=== PATIENT | male | born 1995 | race Caucasian/White ===

== ENCOUNTER 2016-08-17 04:06 | Emergency (ER) | payer BC ==
[~2016-08-17] VITALS: Ht 193 cm; Wt 69.7 kg
[~2016-08-17 04:06] MED LIST: FLUO20TA25 PO; TRAM50TA2 PO
[2016-08-17 05:11] VITALS: BP 127/84
== END 2016-08-17 05:13 | disposition home or self-care (01) ==
LOC: ED 05:07
DX: F41.9 Anxiety disorder, unspecified (principal); F15.129 Other stimulant abuse with intoxication, unspecified; F17.210 Nicotine dependence, cigarettes, uncomplicated; F31.9 Bipolar disorder, unspecified
CPT/HCPCS: 93005; 99284